=== PATIENT | male | born 1960 | race Hispanic/Latino ===

== ENCOUNTER 2021-08-30 16:34 | Emergency (ER) | payer OTHER ==
[~2021-08-30] VITALS: Ht 167.6 cm; Wt 113.4 kg
[2021-08-30] MEDS ORDERED: CEFTRIAXONE 1 GM VIAL ONE (17:49)
[2021-08-30] MEDS ORDERED: IBUPROFEN 600 MG TAB ONE (17:57)
[2021-08-30] MEDS ORDERED: IBUPROFEN 600 MG TAB PO ONE (18:00)
[2021-08-30] MEDS ORDERED: CEFTRIAXONE 1 GM in SODIUM CHLORIDE 0.9% 50ML 50 ML IV ONE (18:00)
[2021-08-30] MEDS ORDERED: SODIUM CHLORIDE 0.9% 1000ML 1,000 ML IV ONE (18:00)
[2021-08-30] MEDS ORDERED: ONDANSETRON ODT4 MG PO (19:25)
== END 2021-08-30 20:00 | disposition home or self-care (01) ==
LOC: FSED 17:09
DX: U07.1 COVID-19 (principal); R50.9 Fever, unspecified; R10.9 Unspecified abdominal pain; R30.0 Dysuria; R11.2 Nausea with vomiting, unspecified; N40.0 Benign prostatic hyperplasia without lower urinary tract symptoms; K76.0 Fatty (change of) liver, not elsewhere classified
CPT/HCPCS: 71045; 74176; 80053; 81003; 83605; 85025; 87040; 99284; J0696; J7030; U0002

== ENCOUNTER → 2023-09-06 | Outpatient (REF) | payer MEDICARE ==
[~2023-09-06] MED LIST: IOPAMIDOL 370 MG/ML 100 ML INFUS..BTL INJ ONE; ONDANSETRON HCL INJ 2MG/ML 2ML 2 MG/ML VIAL ONE; ONDANSETRON ODT4 MG PO
[2023-09-06 08:50] LABS: CREATININE, SERUM 0.87 mg/dL (0.72-1.25)
== END ==
LOC: CT 07:42
PROVIDERS: ATTEND Family Medicine
DX: J20.9 Acute bronchitis, unspecified (principal); R93.89 Abnormal findings on diagnostic imaging of other specified body structures
CPT/HCPCS: 36415; 71260; 82565; 84520; J2405; Q9967

== ENCOUNTER 2024-10-01 21:47 | Emergency (ER) | payer MEDICARE, OTHER ==
[~2024-10-01] VITALS: Ht 175.3 cm; Wt 81.6 kg
[~2024-10-01 21:47] MED LIST changes: -IOPAMIDOL 370 MG/ML 100 ML INFUS..BTL INJ ONE; -ONDANSETRON HCL INJ 2MG/ML 2ML 2 MG/ML VIAL ONE
[2024-10-01 22:06] VITALS: PULSE 78; RESP 20; TEMP 98.1
[2024-10-02] VITALS: BP 128/82; PULSE 79; RESP 18; TEMP 98; O2SAT 98
== END 2024-10-02 00:01 | disposition home or self-care (01) ==
LOC: ER 22:07
DX: R33.9 Retention of urine, unspecified (principal); I10 Essential (primary) hypertension; E78.5 Hyperlipidemia, unspecified; E03.9 Hypothyroidism, unspecified
CPT/HCPCS: 51700; 99284

== ENCOUNTER 2024-10-28 20:37 | Emergency (ER) | payer MEDICARE ==
[~2024-10-28] VITALS: Ht 175.3 cm; Wt 81.6 kg
[2024-10-28 20:40] VITALS: PULSE 64; RESP 18; TEMP 98.2
[2024-10-28 22:44] LABS: CLARITY,URINE SL CLOUDY (CLEAR); COLOR,URINE PINK (YELLOW); LEUKOCYTE ESTERASE ,URINE LARGE (NEGATIVE); PH,URINE 7 (5 - 7)
[2024-10-28 22:45] LABS: BILIRUBIN,URINE NEGATIVE (NEGATIVE); GLUCOSE, URINE NEGATIVE (NEGATIVE); KETONES,URINE NEGATIVE (NEGATIVE); NITRITE,URINE NEGATIVE (NEGATIVE); PROTEIN,URINE DIPSTICK NEGATIVE (NEGATIVE); URINE UROBILINOGEN 0.2 mg/dL (0.2 - 1)
[2024-10-28 22:59] LABS: BACTERIA,URINE MANY /HPF; EPITHELIAL CELLS,URINE FEW /LPF; RBC,URINE 21-50 /HPF (0-5); WBC,URINE (MAN) 21-50 /HPF (0-5)
[2024-10-29 01:02] VITALS: BP 128/69; PULSE 71; RESP 18; TEMP 97.3; O2SAT 98
== END 2024-10-29 00:20 | disposition home or self-care (01) ==
LOC: ER 20:44
DX: R10.31 Right lower quadrant pain (principal); N50.811 Right testicular pain; I10 Essential (primary) hypertension; E78.5 Hyperlipidemia, unspecified; E03.9 Hypothyroidism, unspecified
CPT/HCPCS: 74176; 76870; 81001; 93976; 99284

== ENCOUNTER 2024-10-31 19:52 | Emergency (ER) | payer MEDICARE ==
[~2024-10-31] VITALS: Ht 170.2 cm; Wt 84.4 kg
[2024-10-31 19:56] VITALS: PULSE 66; RESP 18; TEMP 98.5
[2024-10-31 23:28] VITALS: BP 132/70; PULSE 66; RESP 18; TEMP 98.5; O2SAT 98
== END 2024-10-31 21:07 | disposition home or self-care (01) ==
LOC: FSED 20:58
DX: Z46.6 Encounter for fitting and adjustment of urinary device (principal); I10 Essential (primary) hypertension; E78.5 Hyperlipidemia, unspecified; E03.9 Hypothyroidism, unspecified
CPT/HCPCS: 99282

== ENCOUNTER → 2025-02-02 | Outpatient (REF) | payer MEDICARE | LOC: DX 09:54 | PROVIDERS: ATTEND Family Medicine | DX: M85.88 Other specified disorders of bone density and structure, other site (principal); E55.9 Vitamin D deficiency, unspecified | CPT/HCPCS: 77080 ==